=== PATIENT | male | born 1930 | race Caucasian/White ===

== ENCOUNTER 2018-05-17 10:51 | Day surgery (SDC) | payer MEDICARE, OTHER ==
[2018-05-17] MEDS ORDERED: LIDOCAINE 2% (SDV) 5 ML INJ (13:16)
[2018-05-17] MEDS ORDERED: PROPOFOL 60 ML (13:16)
[2018-05-17] MEDS ORDERED: METOPROLOL 5 MG INJ (13:25)
[2018-05-17] MEDS ORDERED: hydrALAzine 20 MG INJ (13:51)
== END 2018-05-17 15:46 | disposition home or self-care (01) ==
LOC: GIL 10:51
DX: K29.50 Unspecified chronic gastritis without bleeding (principal); K20.9 Esophagitis, unspecified; K57.90 Diverticulosis of intestine, part unspecified, without perforation or abscess without bleeding; K62.5 Hemorrhage of anus and rectum; I25.10 Atherosclerotic heart disease of native coronary artery without angina pectoris; E78.5 Hyperlipidemia, unspecified; E66.9 Obesity, unspecified; Z68.29 Body mass index [BMI] 29.0-29.9, adult; I10 Essential (primary) hypertension
CPT/HCPCS: 43239; 88305; 88312